=== PATIENT | male | born 1945 | race Caucasian/White ===

== ENCOUNTER → 2016-07-31 | Outpatient (REF) | payer MEDICARE, OTHER ==
[~2016-07-31] MED LIST: ACET500C OR; DICL0.1S7 TOP; INSTAFLEX PO; LOSARTAN/HCTZ PO
== END ==
LOC: M LAB REF 13:41
PROVIDERS: ATTEND Ophthalmology
DX: D23.12 Other benign neoplasm of skin of left eyelid, including canthus (principal)